=== PATIENT | female | born 1990 | race African-American/Black ===

== ENCOUNTER 2018-03-19 13:29 | Inpatient (IN) | payer BC ==
--- NOTE | 2018-03-19 18:17 | History and Physical Report ---
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 Patient presented to triage in labor, initially 2 cm dilated to 4 cm per RN. care complicated by hepatitis B positive status, status post GI consultation. 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 denies: lives with family, smoking, alcohol abuse, prescription drug abuse - Obstetrical History Expected Date of Delivery: 03/30/18 Actual Gestation: 38 Week(s) 3 Day(s) : 1 Para: 0 Review of Systems Constitutional: no fever, no chills, no fatigue, no lethargy, no chronic headaches Eyes: no diplopia, no photophobia Cardiovascular: no chest pain, no edema, no syncope, no lightheadedness, no shortness of breath, no dyspnea on exertion, no high blood pressure, no leg edema Respiratory: no cough, no shortness of breath, no dyspnea on exertion Gastrointestinal: no abdominal pain, no nausea, no vomiting, no heartburn, no indigestion Genitourinary: contractions, no vaginal bleeding, no vaginal discharge, no leakage of fluid - Physical Exam Cardiovascular: Regular rate, Normal S1, Normal S2 Lungs: Positive: Clear to auscultation, Normal air movement Abdomen: Positive: normal appearance, soft. Negative: distention, tenderness, guarding, rigidity Genitourinary (Female): Positive: normal external genitalia Uterus: Positive: enlarged (EFW ~ 3400). Negative: tender Adnexa: both: normal Extremities: Positive: normal - Obstetrical FHR: category 1 Cervical Dilatation: 4 (per RN exam) Results All other labs normal. Assessment and Plan A: 27-year-old at 38+3 weeks in labor -cat 1 tracing P: -Admit -Routine labs -Expectant mgt -Anticipate - Patient Problems (1) 38 weeks gestation of Current Visit: Yes Status: Acute
[2018-03-19] MEDS ORDERED: XYLOCAINE 2% INFILTRATI ONE (18:18)
[2018-03-19] MEDS ORDERED: BRETHINE IVP PRN (18:18)
[2018-03-19] MEDS ORDERED: BRETHINE SUB-Q PRN (18:18)
[2018-03-19] MEDS ORDERED: ZOFRAN IV PRN (18:18)
[2018-03-19] MEDS ORDERED: ePHEDrine SULFATE IV PRN (18:18)
[2018-03-19 18:51] LABS: Hematocrit 41.4 % (30.3-42.9); Hemoglobin 13.8 gm/dl (10.1-14.3); Mean Corpuscular HGB Conc 33 % (30-34); Mean Corpuscular Hemoglobin 31 pg (28-32); Mean Corpuscular Volume 94 fl (79-97); Platelet Count 186 K/mm3 (140-440); Red Blood Count 4.43 M/mm3 (3.65-5.03); Red Cell Distribution Width 13.8 % (13.2-15.2)
[2018-03-19] MEDS ORDERED: PITOCin/NS 20 UNIT/1000ML DRIP 20 UNITS/1,000 ML BAG IV SCH (19:00)
[2018-03-19] MEDS ORDERED: PITOCin/NS 30 UNIT/500ML 30 UNITS/500 ML BAG IV SCH (19:00)
[2018-03-19] MEDS: LACTATED RINGERS 1,000 ML IV SCH (19:33)
[2018-03-20] MEDS: LACTATED RINGERS 1,000 ML IV SCH ×2 (03:21→10:40)
[2018-03-20] MEDS: SUBLIMAZE IV PRN ×3 (04:29→08:00)
--- NOTE | 2018-03-20 07:35 | Progress Note ---
Assessment and Plan A: 27-year-old at 38+4 weeks in labor -cat 1 tracing P: -IUPC placed -Continue present care -Anticipate - Patient Problems (1) 38 weeks gestation of Current Visit: Yes Status: Acute Subjective - Subjective Date of service: 03/20/18 Interval history: Patient now 4-5 cm/ status post ruptured membranes with clear fluid Patient reports: new complaints, loss of fluid, movement normal, contractions, no vaginal bleeding Objective - Vital Signs Vital Signs: Vital Signs - 12hr 03/20/18 03/20/18 03/20/18 02:10 04:29 04:59 Temperature 97.9 F Pulse Rate 68 Respiratory 16 16 16 Rate Blood Pressure 115/65 [Left] 03/20/18 03/20/18 06:49 07:22 Temperature 98.1 F Pulse Rate 68 Respiratory 16 16 Rate Blood Pressure 100/60 [Left] - Exam FHR: category 1 Cervical Dilatation: 4.5 station: -2 - Labs Labs: Abnormal Labs 03/19/18 18:28 WBC 11.3 H Laboratory Results - last 24 hr 03/19/18 03/19/18 18:28 18:28 WBC 11.3 H RBC 4.43 Hgb 13.8 Hct 41.4 MCV 94 MCH 31 MCHC 33 RDW 13.8 Plt Count 186 Blood Type O POSITIVE Antibody Screen Negative
[2018-03-20] MEDS ORDERED: NARCAN 2 MG/2 ML IV PRN (08:02)
[2018-03-20] MEDS ORDERED: ePHEDrine SULFATE IV PRN (08:02)
--- NOTE | 2018-03-20 08:03 | Anesthesia Consultation ---
Anesthesia Consult and Med Hx Date of service: 03/20/18 - Airway Anesthetic Teeth Evaluation: Good ROM Head & Neck: Adequate Mental/Hyoid Distance: Adequate Mallampati Class: Class I - Pulmonary Exam CTA: Yes - Cardiac Exam Cardiac Exam: RRR - Pre-Operative Health Status ASA Pre-Surgery Classification: ASA2 Proposed Anesthetic Plan: Epidural, Spinal - Pulmonary Hx Asthma: No COPD: No Hx Pneumonia: No - Cardiovascular System Hx Hypertension: No - Central Nervous System Hx Seizures: No Hx Psychiatric Problems: No - Endocrine Hx Renal Disease: No Hx End Stage Renal Disease: No Hx Hypothyroidism: No Hx Hyperthyroidism: No - Hematic Hx Anemia: No Hx Sickle Cell Disease: No - Other Systems Hx Alcohol Use: No
[2018-03-20] MEDS: fentaNYL-BUPIV 2 MCG/ML-0.125% 200 MCG/100 ML BAG EPIDURAL SCH ×2 (10:41→13:23)
[2018-03-20] MEDS: MINERAL OIL PO PRN ×2 (12:56→14:46)
[2018-03-20] MEDS ORDERED: NORCO 5/325 PO PRN (15:05)
[2018-03-20] MEDS ORDERED: LANSINOH TP PRN (15:05)
[2018-03-20] MEDS ORDERED: PHENERGAN PO PRN (15:05)
[2018-03-20] MEDS ORDERED: TUCKS PAD TP PRN (15:05)
[2018-03-20] MEDS ORDERED: BENADRYL PO PRN (15:05)
--- NOTE | 2018-03-20 15:13 | Procedure Note ---
OB Delivery Note - Delivery Date of Delivery: 03/20/18 (1405) Surgeon: REY BARAHONA Estimated blood loss: 500cc (Acute blood loss from lacerations) - Vaginal Delivery presentation: vertex Delivery position: OA Intrapartum events: none Delivery induction: none Delivery augmentation: pitocin Delivery monitor: external FHT, internal FHT Route of delivery: Delivery placenta: spontaneous Delivery cord: 3 umbilical vessels Delivery laceration: 2nd degree, vaginal side wall Delivery repair: vicryl Anesthesia: epidural Delivery comments: of a live 7'1 male over a deep 2nd degree perineal and vaginal wall laceration under epidural anesthesia with Apgars of 6 and 9 at 1405 on 2017. Cord double clamped and cut by MONICA Barahona and placed on warmer. Cord blood collected. Spontaneous delivery of placenta complete and intact with [place] side presenting at 1408. Fundus is firm and midline located 5 below the U. Lochia is scant. Vaginal/Perineal lacerations repaired with 2-[address]-1. Placenta discarded. - A at 1 minute: 6 at 5 minutes: 9 Gender: Male (7'1)
[2018-03-20] MEDS: MOTRIN PO SCH ×2 (15:23→23:00)
[2018-03-20] MEDS ORDERED: SODIUM CHLORIDE FLUSH SYRINGE 10 ML IV NR (16:00)
[2018-03-20] MEDS: FEOSOL PO SCH ×2 (18:19→23:00)
[2018-03-20] MEDS: SENOKOT S PO SCH (23:00)
[2018-03-21] MEDS: MOTRIN PO SCH ×3 (04:20→20:45)
[2018-03-21 05:55] LABS: Hematocrit 25.8 % (30.3-42.9); Hemoglobin 8.6 gm/dl (10.1-14.3)
[2018-03-21] MEDS: SENOKOT S PO SCH ×3 (10:12→22:52)
[2018-03-21] MEDS: PRENATAL VITAMIN PO SCH (10:13)
[2018-03-21] MEDS: FEOSOL PO SCH ×3 (10:13→20:45)
[2018-03-21] MEDS ORDERED: INFED IM ONE (12:48)
--- NOTE | 2018-03-21 12:48 | Progress Note ---
Assessment and Plan A: PP Day #1 Asymptomatic Anemia P: Follow Routine orders Infed 100mg IM x 1 dose Continue Feso4 325mg PO TID; script called to pharmacy D/C home in the AM RTO in 6 weeks Subjective - Subjective Date of service: 03/21/18 Patient reports: appetite normal, voiding normally, pain well controlled, flatus , ambulating normally [place]: doing well Objective - Vital Signs Latest vital signs: Vital Signs Temp Pulse Resp BP Pulse Ox 03/21/18 08:15 98.2 F 95 H 18 103/56 03/21/18 05:20 17 03/21/18 04:20 18 03/21/18 00:50 98.7 F 122 H 18 111/55 03/21/18 00:00 17 03/20/18 23:00 18 03/20/18 21:05 98.9 F 109 H 18 103/52 03/20/18 16:45 99.1 F 112 H 20 101/64 96 03/20/18 16:10 99.6 F 120 H 20 102/61 03/20/18 15:29 134 H 20 117/67 03/20/18 15:23 22 03/20/18 15:14 122 H 20 106/65 03/20/18 14:59 125 H 102/59 03/20/18 14:30 121 H 22 93/51 03/20/18 14:15 99.7 F H 133 H 22 125/66 99 03/20/18 13:45 136 H 28 H 108/57 99 03/20/18 13:30 99.4 F 26 H 03/20/18 13:25 130 H 24 121/64 98 03/20/18 13:12 114 H 124/60 03/20/18 13:03 123 H 24 141/63 03/20/18 12:53 110 H 22 118/70 Intake and Output 03/20/18 03/21/18 03/21/18 22:59 06:59 14:59 Intake Total 240 180 600 Output Total 400 800 600 Balance -160 -620 0 Intake: Oral 600 Intake, Free Water 240 180 Output: Urine 400 800 600 Void 400 800 600 Other: Total, Intake Amount 360 Total, Output Amount 400 800 600 # Voids Void 1 - Exam Breasts: Present: normal Cardiovascular: Present: Regular rate Lungs: Present: Clear to auscultation, Normal air movement Abdomen: Present: normal appearance, soft, normal bowel sounds Uterus: Present: normal, firm, fundal height below umbilicus Extremities: Present: normal - Labs Labs: Abnormal lab results 03/21/18 Range/Units 05:45 Hgb 8.6 L D (10.1-14.3) gm/dl Hct 25.8 L D (30.3-42.9) %
--- NOTE | 2018-03-21 12:51 | Discharge Summary ---
Providers - Providers Date of Admission: 03/19/18 13:30 Date of discharge: 03/22/18 Attending physician: DIDI ALLEN MD Primary care physician: DIDI ALLEN MD Hospitalization Reason for admission: active labor, section Episiotomy: none Laceration: vaginal side wall, 2nd degree Other procedures: none complications: none Discharge diagnosis: IUP at term delivered baby: male Condition at discharge: Good Disposition: DC-01 TO HOME OR SELFCARE Plan - Provider Discharge Summary Activity: routine, no sex for 6 weeks, no heavy lifting 4 weeks, no strenuous exercise Diet: routine Instructions: routine Additional instructions: [] Smoking cessation referral if applicable(refer to patient education folder for contact #) [] Refer to [facility]'s [facility] Booklet Call your doctor immediately for: * Fever > 100.5 * Heavy vaginal bleeding ( >1 pad per hour) * Severe persistent headache * Shortness of breath * Reddened, hot, painful area to leg or breast * Drainage or odor from incision. * Keep incision clean and dry at all times and follow doctor's instructions regarding bathing/showering - Follow up plan Follow up: DIDI ALLEN MD [Primary Care Provider] - 6 Weeks
[2018-03-22] MEDS: MOTRIN PO SCH ×3 (05:03→10:33)
[2018-03-22] MEDS ORDERED: BOOSTRIX IM ONE (06:00)
[2018-03-22] MEDS: FEOSOL PO SCH (07:58)
[2018-03-22] MEDS: PRENATAL VITAMIN PO SCH (10:33)
[2018-03-22] MEDS: SENOKOT S PO SCH (10:33)
[2018-03-22 13:47] VITALS: BP 103/69
== END 2018-03-22 13:15 | disposition home or self-care (01) | DRG 775 ==
LOC: TRG 13:29 → LD 13:30 → TRG 14:51 → OB 03-20 16:25
PROVIDERS: ADMIT Obstetrics & Gynecology; ATTEND Obstetrics & Gynecology
PROC: 10E0XZZ Delivery of Products of Conception, External Approach (ICD-10-PCS; principal; 2018-03-20)
PROC: 0KQM0ZZ Repair Perineum Muscle, Open Approach (ICD-10-PCS; 2018-03-20)
PROC: 10H07YZ Insertion of Other Device into Products of Conception, Via Natural or Artificial Opening (ICD-10-PCS; 2018-03-20)
PROC: 3E0R3BZ Introduction of Anesthetic Agent into Spinal Canal, Percutaneous Approach (ICD-10-PCS; 2018-03-20)
PROC: 00HU33Z Insertion of Infusion Device into Spinal Canal, Percutaneous Approach (ICD-10-PCS; 2018-03-20)
DX: O70.1 Second degree perineal laceration during delivery (principal); Z37.0 Single live birth; D62 Acute posthemorrhagic anemia; Z3A.38 38 weeks gestation of pregnancy; O99.03 Anemia complicating the puerperium
CPT/HCPCS: 36415; 59025; 85014; 85018; 85027; 86592; 86850; 86900; 86901; 90471; 90715; 99211; G0463; J1750; J2590; J3010; J7120